=== PATIENT | female | born 1965 ===

== ENCOUNTER 2018-09-03 00:49 | Emergency (ER) | payer SELFPAY ==
--- NOTE | 2018-09-03 04:29 | C.PDOC ---
Time Seen by Provider: 09/03/18 03:53 Past Medical History - Social History Hx Alcohol Use: No Hx Substance Use: No - Immunization History Hx Tetanus Toxoid Vaccination: No
[2018-09-03 05:45] VITALS: BP 147/85; PULSE 79; RESP 20; TEMP 98.1; O2SAT 97
[2018-09-03 07:42] LABS: BASO % 0.2 % (0.0-2.0); EOS % 0.2 % (0.0-4.0); LYMPH # 1.6 K/uL (1.0-4.3); LYMPH % 13.9 % (20.0-40.0); MEAN CELL VOLUME 82.9 fL (81.0-99.0); MEAN CORPUSCULAR HEMOGLOBIN 27.7 pg (27.0-31.0); MEAN CORPUSCULAR HGB CONC 33.4 g/dL (33.0-37.0); MONO # 0.5 K/uL (0.0-0.8); MONO % 4.5 % (0.0-10.0); NEUT # 9.5 K/uL (1.8-7.0); NEUT % 81.2 % (50.0-75.0); RBC 5.04 Mil/uL (3.80-5.20); RED CELL DISTRIBUTION WIDTH 13.7 % (11.5-14.5); WHITE BLOOD COUNT 11.7 K/uL (4.8-10.8)
[2018-09-03 08:07] LABS: INR 1.1; PROTHROMBIN TIME 12.1 SECONDS (9.7-12.2)
[2018-09-03 11:19] LABS: BLOOD UREA NITROGEN 7 mg/dL (7-17); GFR NON-AFRICAN AMERICAN > 60
[2018-09-03 11:20] LABS: ALB/GLOB RATIO 1.1 (1.0-2.1); ALBUMIN 4.2 g/dL (3.5-5.0); ALT/SGPT 44 U/L (9-52); AST/SGOT 32 U/L (14-36); CALCIUM 9.1 mg/dl (8.6-10.4); LIPASE 70 U/L (23-300)
== END 2018-09-03 05:45 | disposition home or self-care (01) ==
LOC: C.ER 00:49 → MERGE 00:49 → C.ER 05:45
DX: K80.50 Calculus of bile duct without cholangitis or cholecystitis without obstruction (principal)
CPT/HCPCS: 80053; 83690; 85025; 85610; 85730; 96374; 96375; 99281; J2270; J2405; J7030